=== PATIENT | female | born 1975 | race Caucasian/White ===

== ENCOUNTER → 2022-04-10 | Outpatient (CLI) | payer BC ==
[2022-04-10 16:26] LABS: Basophils # (A) 0.06 X 10*3/uL (0.00-0.10); Basophils % (A) 1.2 %; Eosinophils # (A) 0.14 X 10*3/uL (0.04-0.35); Eosinophils % (A) 2.9 %; HCT 38.3 % (37.2-46.3); HGB 11.6 g/dL (12.0-15.0); Immature Grans, Automated 0.2 %; Lymphocytes # (A) 2.05 X 10*3/uL (0.90-5.00); Lymphocytes % (A) 42.5 %; MCH 27.4 pg (27.0-32.0); MCHC 30.3 g/dL (32.0-37.0); MCV 90.3 fL (80.0-97.0); Mean Platelet Volume 11.3 fL (9.5-12.2); Monocytes # (A) 0.71 X 10*3/uL (0.20-1.00); Monocytes % (A) 14.7 %; NRBC Per 100 WBC 0 /100 WBCS (0.0-0.0); Neutrophils # (A) 1.85 X 10*3/uL (1.80-7.70); Neutrophils % (A) 38.5 %; Platelet Count 286 X 10*3/uL (140-440); RBC 4.24 X 10*6/uL (4.10-5.20); RDW 14.1 % (11.5-14.5); WBC 4.82 X 10*3/uL (4.50-10.00)
[2022-04-10 16:32] LABS: Anion Gap 6.2 mmol/L (10.00-18.00); Carbon Dioxide 25.8 mmol/L (20.0-27.5); Potassium 4.5 mmol/L (3.5-5.5)
[2022-04-10 16:33] LABS: African American GFR (CKD) 121.3 (60.0-200.0); Blood Urea Nitrogen 10.6 mg/dL (9.0-27.0); Non-African American GFR(CKD) 104.6 (60.0-200.0)
== END | disposition home or self-care (01) ==
LOC: LABPAT 11:11
PROVIDERS: ATTEND Obstetrics & Gynecology
DX: Z01.812 Encounter for preprocedural laboratory examination (principal); N92.1 Excessive and frequent menstruation with irregular cycle; D25.9 Leiomyoma of uterus, unspecified
CPT/HCPCS: 80051; 82565; 82947; 84520; 85025; 87086

== ENCOUNTER 2022-04-19 07:06 | Observation (INO) | payer BC ==
[2022-04-16 09:00] VITALS: BMI 28.3
[2022-04-19] MEDS ORDERED: ONDANSETRON 4 MG/2 ML VIAL ONE (07:24)
[2022-04-19] MEDS ORDERED: LIDOCAINE 1% (10MG/ML) FOR IV START INTRADERMA ONE (07:45)
[2022-04-19] MEDS ORDERED: LACTATED RINGERS 1,000 ML IV ONE ×2 (07:46→09:50)
[2022-04-19] MEDS ORDERED: DEXAMETHASONE SOD PHOSPHATE 4 MG/ML 1 ML VIAL IVP ONE (08:15)
[2022-04-19] MEDS ORDERED: MIDAZOLAM 2 MG/2 ML VIAL IVP ONE (08:28)
[2022-04-19] MEDS ORDERED: GLYCOPYRROLATE 0.2 MG/ML 2 ML VIAL ONE (09:09)
[2022-04-19] MEDS ORDERED: ROCURONIUM 10 MG/ML (5 ML VIAL) IV ONE (09:09)
[2022-04-19] MEDS ORDERED: KETOROLAC 15 MG/ML 1 ML VIAL ONE (09:09)
[2022-04-19] MEDS ORDERED: DEXAMETHASONE SOD PHOSPHATE 4 MG/ML 1 ML VIAL ONE (09:09)
[2022-04-19] MEDS ORDERED: HYDROmorphone (PF) 1 MG/ML ONE (09:09)
[2022-04-19] MEDS ORDERED: MIDAZOLAM 2 MG/2 ML VIAL ONE (09:09)
[2022-04-19] MEDS ORDERED: ROPIVACAINE 5 MG/ML 30 ML VIAL ONE (09:09)
[2022-04-19] MEDS ORDERED: NEOSTIGMINE 1 MG/ML 10 ML VIAL ONE (09:09)
[2022-04-19] MEDS ORDERED: LIDOCAINE 2% INJ 20 MG/ML (2 ML VIAL) ONE (09:09)
[2022-04-19] MEDS ORDERED: fentaNYL (PF) 50 MCG/ML 2 ML AMP ONE (09:09)
[2022-04-19] MEDS ORDERED: PROPOFOL 10 MG/ML 20 ML VIAL IV ONE (09:09)
[2022-04-19] MEDS ORDERED: BUPIVACAINE (PF) 0.5% 30 ML VIAL SQ ONE ×2 (09:40→11:18)
[2022-04-19] MEDS ORDERED: diphenhydrAMINE 50 MG/ML 1 ML VIAL IVP PRN (11:26)
[2022-04-19] MEDS ORDERED: SIMETHICONE 80 MG CHEWABLE PO PRN (11:26)
[2022-04-19] MEDS ORDERED: ONDANSETRON 4 MG/2 ML VIAL IVP PRN (11:26)
[2022-04-19] MEDS ORDERED: Acetaminophen-Codeine 300-30mg TAB PO PRN (11:26)
[2022-04-19] MEDS ORDERED: METOCLOPRAMIDE 5 MG/ML 2 ML VIAL IVP PRN (11:26)
[2022-04-19] MEDS ORDERED: LACTATED RINGERS 1,000 ML IV SCH (11:30)
--- NOTE | 2022-04-19 11:39 | P.OP ---
Date of Procedure: 04/19/22 Preoperative Diagnosis: #1. Menometrorrhagia #2. Large fibroid uterus Postoperative Diagnosis: Same Procedure(s) Performed: #1. Da Elbert robotically assisted laparoscopic hysterectomy, right salpingo- oophorectomy, left salpingectomy #2. Uterine morcellation #3. 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 Intraoperatively, the fibroid was noted to be involving the majority of the fundus of the uterus. The right ovary was directly infested to the uterine fundus on that side and could not be easily and the decision was made to take it with the specimen. Otherwise, the pelvic anatomy was entirely normal. The uterus was ultimately morcellated after having removed at laparoscopically in order to allow it to fit through the vagina. The bladder both cystoscopically and laparoscopically was intact and the bilateral ureteral hillocks were seen to be peristalsing. Description of Procedure: The patient was prepped and draped in usual fashion after general endotracheal anesthesia was administered by the anesthesiologist. A weighted speculum was placed in the anterior lip the cervix grasped with a single-tooth tenaculum. Serial dilation was carried out to admit the [facility] uterine manipulator with a large cup which was placed in standard fashion. The bladder was then catheterized with a Galarza catheter. Attention was turned to the abdomen where a site was selected approximately 5-6 cm above the umbilicus in the midline where an 8 mm incision was made in the transverse plane allowing insertion of an 8 mm da Elbert optical trocar under direct visualization without difficulty. A site was selected approximately 10-12 cm lateral and 3-4 cm inferiorly in the right lower quadrant approximately adjacent to the umbilicus where another 8 mm incision was made in the transverse plane allowing insertion of an 8 mm da Elbert port under direct visualization. A similar port was placed in the left lower quadrant. They're between the left lower quadrant port and the optical port was then bisected and a site selected approximately 4 cm above the optical port where a 1 cm incision was made allowing insertion of a 10 mm talent acquisition assistant port without difficulty again under direct visualization. Once the ports were placed, the robot was docked to the patient and the left arm loaded with the [place] bipolar cautery forceps while the right arm was loaded with a monopolar cautery scissors. I then presented to the console and began by removing the left tube from the underlying tissues both sharply with monopolar and bipolar cautery and the scissors. At the level of the uterus, utero-ovarian ligament was cauterized with the [place] then cut with the monopolar scissors. This incision was carried up and through the round ligament. Once through the round ligament, the bladder peritoneum was developed to the midline. The uterine vasculature was clearly seen and was cauterized with the [place] bipolar cautery forceps. Attention was then turned to the right side where was noted that the right tube and ovary were directly vested to the side of the uterus and it would be difficult or impossible to separate them from the uterus and maintain the integrity of the infundibulopelvic ligament. Decision was made to remove the ovary with the specimen. The utero-ovarian ligament was cauterized with the [place] bipolar cautery forceps and cut with the monopolar cautery scissors. This dissection was taken through the round ligament on the right side using similar techniques. The bladder peritoneum was then developed to the previously started incision from the other side in the midline. Blunt and sharp dissection was carried out to reflect the bladder distally. The uterine vasculature was then cauterized with the [place] bipolar cautery forceps on the right side and then cut with the monopolar scissors. We returned then to the left side and divided the vascular pedicle sharply with the scissors. Hemostasis was excellent throughout. The vaginal cuff was then opened sharply with the scissors using monopolar and bipolar cautery to identify the cervical cup. The incision was then carried around following the cervical cup circumferentially until the uterus was free. Attempts to deliver the uterus into the vagina were unsuccessful given the size of the fundus of the uterus and morcellation was undertaken with multiple pieces of the uterus removed from the center after bivalving the cervix. Ultimately, the uterus was delivered into the vagina and the vagina then packed with a laparotomy sponge allowing preservation of the pneumoperitoneum. I then returned to the console after having morcellated the uterus and treated the scissors for a laparoscopic suturing device. A stitch of 0 Stratafix was passed into the abdomen and the vaginal cuff closed from one angle to the other in standard fashion. The needle was then removed without difficulty. Hemostasis appeared to be excellent. Suction irrigation was carried out and again confirmed excellent hemostasis. I then returned to the patient and remove the Galarza catheter allowing placement of a diagnostic cystoscope. The bladder was filled with sterile water and the dome of the bladder was noted to be undamaged both from a laparoscopic and cystoscopic perspective. The bilateral ureteral hillocks were seen to deliver urine and be peristalsing. The cystoscope was then removed and the Galarza catheter replaced. The robot was undocked from the patient all instrumentation was removed. The 4 incisions were closed with interrupted subcuticular stitches of 4-0 Vicryl and then were infused with a total of 10 mL of half percent Marcaine without epinephrine equally divided between the 4 incisions. Incisions were then covered with Steri-Strips and Band-Aids. Estimated blood loss for the case was approximately 50 mL. There were no complications. All sponge, instrument, and needle counts were correct. The patient tolerated the procedure well and proceeded to the recovery room in stable condition.
[2022-04-19] MEDS ORDERED: MEPERIDINE 50 MG/ML SYRINGE IVP ONE (11:50)
--- NOTE | 2022-04-19 12:35 | P.ANPRN ---
Procedure Note - Anesthesia - Nerve Block Performed Bilateral Erector Spinae Single Time Out Performed: Yes Date of Procedure: 04/19/22 Procedure Start Time: : Procedure Stop Time: :35 Location of Patient: PreOp Indication: Acute Post-Operative Pain, Requested by Surgeon Sedation Type: Sedate with meaningful contact maintained Preparation: Sterile Prep Position: Prone Needle Types: Pajunk Needle Gauge: 21 Ultrasound used to visualize needle placement: Yes Ultrasound used to observe medication spread: Yes Blood Aspirated: No Pain Paresthesia on Injection Noted: No Resistance on Injection: Normal Image Stored and Saved: Yes Events: Uneventful and Well Tolerated (ropi .5% 20cc plus ns 10cc plus dexamethasone 4mg)
[2022-04-19] MEDS: Acetaminophen-Codeine 300-30mg TAB PO PRN ×2 (12:50→19:49)
[2022-04-19] MEDS: KETOROLAC 15 MG/ML 1 ML VIAL IVP PRN ×2 (15:40→21:59)
[2022-04-19] MEDS: SENNOSIDES-DOCUSATE SODIUM 1 EACH TAB PO SCH (19:49)
[2022-04-20] MEDS: IBUPROFEN 600 MG TAB PO PRN ×2 (04:02→10:45)
[2022-04-20 07:45] LABS: Basophils # (A) 0.1 k/uL (0-0.2); Basophils % (A) 1 %; Eosinophils # (A) 0.1 k/uL (0-0.7); Eosinophils % (A) 1 %; HCT 31.5 % (34.0-46.0); HGB 9.8 gm/dL (11.4-16.0); Lymphocytes # (A) 1.7 k/uL (1.0-4.8); Lymphocytes % (A) 21 %; MCH 27.9 pg (25.0-35.0); MCHC 30.9 g/dL (31.0-37.0); MCV 90.3 fL (80.0-100.0); Mean Platelet Volume 8.7; Monocytes # (A) 0.9 k/uL (0-1.0); Monocytes % (A) 11 %; Neutrophils # (A) 5.1 k/uL (1.3-7.7); Neutrophils % (A) 63 %; Platelet Count 227 k/uL (150-450); RBC 3.49 m/uL (3.80-5.40); RDW 13.8 % (11.5-15.5); WBC 8.1 k/uL (3.8-10.6)
[2022-04-20] MEDS: SENNOSIDES-DOCUSATE SODIUM 1 EACH TAB PO SCH (08:04)
--- NOTE | 2022-04-20 08:47 | P.DS ---
Providers Date of admission: 04/19/22 23:06 Expected date of discharge: 04/20/22 Attending physician: César Neal Primary care physician: Lucio Landeros - Discharge Diagnosis(es) (1) Fibroid uterus Current Visit: Yes Status: Acute (2) Menometrorrhagia Current Visit: Yes Status: Acute Hospital Course: The patient is a 46-year-old multiparous patient who presented the office complaining of increasing and heavier menometrorrhagia over the course of the last several years. Examination before out that she had a fairly large fibroid uterus approximately 14 weeks size with a large right fundal fibroid which was confirmed by ultrasound. After discussion of options for treatment, the best treatment was decided as hysterectomy and her examination before out either an open approach or a da Elbert approach. She agreed to undergo da Elbert robotically assisted laparoscopic hysterectomy and was taken for that procedure as well as bilateral salpingectomy. Intraoperatively, the decision was made to remove the right ovary as well as it was adherent to the right side of the uterus and would have been very technically difficult to save. The left ovary was entirely normal to appearance. She underwent those procedures and an uncomplicated fashion as well as diagnostic cystoscopy which demonstrated normal ureteral flow and no damage the bladder. Her postoperative course was unremarkable with vital signs remained stable and her temperature was afebrile throughout. She was deemed stable for discharge on postoperative day #1 was discharged home to follow-up in the office in 2 weeks and 8 weeks respectively. Discharge instructions included calling for any significantly increased fever, abdominal pain, vaginal bleeding, GI or urinary complaints, or anything else that concerned her. She was primarily instructed to have nothing in the vagina for at least 8 weeks time to include intercourse. She was last instructed to do no driving until off of all pain medications or 2 weeks' time, whichever came first. She understood her instructions and agrees to follow up as noted above. Discharge medications included any home medications as well as a prescription for Tylenol 3, 1-2 by mouth every 6 hours when necessary pain, #20 dispensed with no refills. Discharge hemoglobin and hematocrit were 9.8 and 31.5 respectively. Procedures: #1. Da Elbert robotically assisted laparoscopic hysterectomy with right salpingo-oophorectomy and left salpingectomy #2. Uterine morcellation for removal #3. Diagnostic cystoscopy Patient Condition at Discharge: Stable Plan - Discharge Summary Discharge Rx Participant: No New Discharge Prescriptions: No Action Multivitamins, Thera [Multivitamin (formulary)] 1 tab PO DAILY Zinc 50 mg PO DAILY Prozac (Unknown Dose) 1 tab PO DAILY [place]-3/Dha/Epa/Fish Oil [Fish Oil 1,000 mg Softgel] 1 each PO DAILY Iron 1 tab PO DAILY Collagen 1 tab PO DAILY Biotin 1 tab PO DAILY Wellbutrin (Unknown Dose) 1 tab PO DAILY Calcium 1 tab PO DAILY Apple Cider Vinegar 1 dose PO DAILY Discharge Medication List Apple Cider Vinegar 1 dose PO DAILY 04/16/22 [History] Biotin 1 tab PO DAILY 04/16/22 [History] Calcium 1 tab PO DAILY 04/16/22 [History] Collagen 1 tab PO DAILY 04/16/22 [History] Iron 1 tab PO DAILY 04/16/22 [History] Multivitamins, Thera [Multivitamin (formulary)] 1 tab PO DAILY 04/16/22 [History] [place]-3/Dha/Epa/Fish Oil [Fish Oil 1,000 mg Softgel] 1 each PO DAILY 04/16/22 [History] Prozac (Unknown Dose) 1 tab PO DAILY 04/16/22 [History] Wellbutrin (Unknown Dose) 1 tab PO DAILY 04/16/22 [History] Zinc 50 mg PO DAILY 04/16/22 [History] Follow up Appointment(s)/Referral(s): César Neal MD [STAFF PHYSICIAN] - 2 Weeks Discharge Disposition: HOME SELF-CARE
[2022-04-20 09:12] VITALS: BP 126/75; PULSE 88; RESP 18; TEMP 98.4
== END 2022-04-20 13:30 | disposition home or self-care (01) ==
LOC: OR 07:06 → 4FBP 11:21 → OR 23:06 → 4FBP 23:06
PROVIDERS: ADMIT Obstetrics & Gynecology; ATTEND Obstetrics & Gynecology
DX: N87.0 Mild cervical dysplasia (principal); N80.0 Endometriosis of uterus; D26.1 Other benign neoplasm of corpus uteri; N72 Inflammatory disease of cervix uteri; N88.8 Other specified noninflammatory disorders of cervix uteri; F32.A Depression, unspecified; D68.2 Hereditary deficiency of other clotting factors; Z98.890 Other specified postprocedural states; Z82.49 Family history of ischemic heart disease and other diseases of the circulatory system; Z87.891 Personal history of nicotine dependence; K21.9 Gastro-esophageal reflux disease without esophagitis; Z79.899 Other long term (current) drug therapy
CPT/HCPCS: 52000; 58573; S2900; 64999; 81025; 85025; 86850; 86900; 86901; 88307; 88341; 88342

== ENCOUNTER 2023-08-11 02:35 | Observation (INO) | payer BC ==
[2023-08-11] MEDS ORDERED: KETOROLAC 15 MG/ML 1 ML VIAL IVP STA (03:09)
[2023-08-11] MEDS ORDERED: SODIUM CHLORIDE 0.9% 1,000 ML IV STA (03:09)
[2023-08-11] MEDS ORDERED: MORPHINE SULFATE 4 MG/ML SYRINGE IVP STA (03:09)
--- NOTE | 2023-08-11 03:19 | ED ---
Abdominal Pain HPI - General Chief Complaint: Abdominal Pain Stated Complaint: Abdominal Pain Time Seen by Provider: 08/11/23 02:40 Source: patient, EMS, RN notes reviewed Mode of arrival: EMS Limitations: no limitations - History of Present Illness Initial Comments: This is a 47-year-old female who presents to the emergency department as a transfer from [facility] for a right ureteral calculus. Patient presented to their facility with right flank and right lower quadrant pain. She was found to have a 7 mm obstructing calculus in the right proximal ureter with mild hydronephrosis. They attempted to control her pain with Toradol and Dilaudid, however she was still very uncomfortable and she was subsequently transferred to our facility for further treatment and urological evaluation. Patient denies any nausea at this time. Also denies any urinary symptoms. Denies any fevers, chills, sore throat, cough, dyspnea, chest pain, palpitations, nausea, vomiting, diarrhea, or headaches. MD Complaint: abdominal pain, flank pain Location: R flank Radiation: RLQ - Related Data Home Medications Medication Instructions Recorded Confirmed Apple Cider Vinegar 1 dose PO DAILY 04/16/22 04/19/22 Biotin 1 tab PO DAILY 04/16/22 04/19/22 Calcium 1 tab PO DAILY 04/16/22 04/19/22 Collagen 1 tab PO DAILY 04/16/22 04/19/22 Iron 1 tab PO DAILY 04/16/22 04/19/22 Multivitamins, Thera [Multivitamin 1 tab PO DAILY 04/16/22 04/19/22 (formulary)] [place]-3/Dha/Epa/Fish Oil [Fish Oil 1 each PO DAILY 04/16/22 04/19/22 1,000 mg Softgel] Prozac (Unknown Dose) 1 tab PO DAILY 04/16/22 04/19/22 Wellbutrin (Unknown Dose) 1 tab PO DAILY 04/16/22 04/19/22 Zinc 50 mg PO DAILY 04/16/22 04/19/22 Allergies Allergy/AdvReac Type Severity Reaction Status Date / Time No Known Allergies Allergy Verified 04/19/22 07:25 Review of Systems ROS Statement: Those systems with pertinent positive or pertinent negative responses have been documented in the HPI. ROS Other: All systems not noted in ROS Statement are negative. Past Medical History Past Medical History: Blood Disorder Additional Past Medical History / Comment(s): factor 5 leiden., hx covid Nov 2021., fibroid uterus, heavy menstrual periods. History of Any Multi-Drug Resistant Organisms: None Reported Additional Past Surgical History / Comment(s): Multiple D&C's Past Anesthesia/Blood Transfusion Reactions: No Reported Reaction Past Psychological History: Anxiety, Depression Smoking Status: Former smoker Past Alcohol Use History: Rare Past Drug Use History: None Reported - Past Family History Mother Family Medical History: No Reported History General Exam Limitations: no limitations General appearance: alert, in no apparent distress Head exam: Present: atraumatic, normocephalic, normal inspection Respiratory exam: Present: normal lung sounds bilaterally. Absent: respiratory distress, wheezes, rales, rhonchi, stridor Cardiovascular Exam: Present: regular rate, normal rhythm, normal heart sounds. Absent: systolic murmur, diastolic murmur, rubs, gallop, clicks GI/Abdominal exam: Present: soft, tenderness (RLQ), normal bowel sounds. Absent: distended Back exam: Present: CVA tenderness (R). Absent: CVA tenderness (L) Neurological exam: Present: alert, oriented X3, CN II-XII intact Psychiatric exam: Present: normal affect, normal mood Skin exam: Present: warm, dry, intact, normal color. Absent: rash Course Vital Signs 08/11/23 08/11/23 02:37 03:12 Temperature 98.0 F Pulse Rate 71 70 Respiratory 16 18 Rate Blood Pressure 140/88 131/68 O2 Sat by Pulse 94 L 95 Oximetry Medical Decision Making - Medical Decision Making This is a 47-year-old female who presents to the emergency department for a right ureteral calculus. Was pt. sent in by a medical professional or institution? @ -[facility] Did you speak to anyone other than the patient for history? @ -No Did you review nursing and triage notes? @ -Yes, and I agree, it is accurate with regards to the patient's symptoms. Were old charts reviewed? @ -Outside records sent from [facility] regarding the patient's visit today. This revealed a 7 mm obstructing right ureteral calculus with mild hydronephrosis. Lab work was unremarkable. Urinalysis negative for signs of infection. Patient's pain was controlled with Toradol and Dilaudid, and she was transferred here for further management. Differential Diagnosis? @ -Differential Flank Pain: UTI, pyelonephritis, kidney stone, musculoskeletal, pancreatitis, cholecystitis, this is not meant to be an all-inclusive list. EKG interpreted by me (3pts min.)? @ -EKG interpreted by me demonstrating the following: Sinus rhythm. Ventricular rate 70 beats per minute, TN interval 175 ms, QRS duration 94 ms, QTC 418 ms. X-rays interpreted by me (1pt min.)? @ -Not obtained CT interpreted by me (1pt min.)? @ -Not obtained U/S interpreted by me (1pt. min.)? @ -Not obtained What testing was considered but not performed? (CT, X-rays, U/S, labs)? Why? @ -None What meds were considered but not given? Why? @ -None Did you discuss the management of the patient with other professionals? @ -No Did you reconcile home meds? @ -No Was smoking cessation discussed for >3mins.? @ -No Was critical care preformed (if so, how long)? @ -No Were there social determinants of health that impacted care today? How? (Homelessness, low income, unemployed, alcoholism, drug addiction, transportation, low edu. Level, literacy, decrease access to med. care, intermediate, rehab)? @ -No Was there de-escalation of care discussed even if they declined? (Discuss DNR or withdrawal of care, Hospice)? @ -No What co-morbidities impacted this encounter? (DM, HTN, Smoking, COPD, CAD, Cancer, CVA, Hep., AIDS, mental health diagnosis, sleep apnea, morbid obesity)? @ -None Was patient admitted / discharged? @ -Admitted. Patient transferred from [facility] for a 7 mm right ureteral obstructing calculus with mild hydronephrosis. Her pain was uncontrolled there after 2 doses of pain medication, and she subsequently transferred here for further management and urological evaluation. I reviewed her blood work, and this demonstrated no acute findings. Urinalysis also negative for signs of infection. Patient was started on IV fluids and given pain and nausea medication in the emergency department. She was also kept NPO in the event any intervention will take place later today. Repeat blood work was ordered here, with results pending at the time of admission. Patient admitted to medicine with urology consult. Undiagnosed new problem with uncertain prognosis? @ -None Drug Therapy requiring intensive monitoring for toxicity (Heparin, Nitro, Insulin, Cardizem)? @ -None Were any procedures done? @ -None Diagnosis/symptom? @ -Right ureteral calculus, hydronephrosis Acute, or Chronic, or Acute on Chronic? @ -Acute Uncomplicated (without systemic symptoms) or Complicated (systemic symptoms)? @ -Complicated Side effects of treatment? @ -None Exacerbation, Progression, or Severe Exacerbation] @ -Not applicable Poses a threat to life or bodily function? @ -Yes, the pain is impacting her ability to function. This case was discussed in detail with the attending ED physician, Dr. Carmen. Presentation, findings, and treatment plan discussed in detail as well. Disposition Clinical Impression: Right ureteral calculus, Hydronephrosis, right Disposition: ADMITTED IP TO THIS HOSP
[2023-08-11] MEDS ORDERED: ONDANSETRON 4 MG/2 ML VIAL IVP STA (03:32)
[2023-08-11] MEDS ORDERED: NALOXONE 0.4 MG/ML 1 ML VIAL IV PRN (03:34)
[2023-08-11] MEDS ORDERED: ONDANSETRON 4 MG/2 ML VIAL IVP PRN (03:34)
[2023-08-11] MEDS: SODIUM CHLORIDE 0.9% 1,000 ML IV SCH ×2 (04:06→13:22)
[2023-08-11 05:12] LABS: ALT 19 U/L (4-34); AST 22 U/L (14-36); African American GFR (CKD) >90 (>60 ml/min/1.73 sqM); Albumin 3.2 g/dL (3.5-5.0); Alkaline Phosphatase 70 U/L (38-126); Anion Gap 5 mmol/L; Blood Urea Nitrogen 15 mg/dL (7-17); Carbon Dioxide 23 mmol/L (22-30); Chloride 111 mmol/L (98-107); Glucose 111 mg/dL (74-99); Non-African American GFR(CKD) 89 (>60 ml/min/1.73 sqM); Potassium 4.5 mmol/L (3.5-5.1); Sodium 139 mmol/L (137-145); Total Bilirubin 0.4 mg/dL (0.2-1.3); Total Protein 5.9 g/dL (6.3-8.2)
[2023-08-11 05:13] LABS: Partial Thromboplastin Time 23.3 sec (22.0-30.0); Prothrombin Time 10.4 sec (9.0-12.0)
[2023-08-11 05:14] LABS: Basophils % (A) 0 %; Eosinophils # (A) 0.1 k/uL (0-0.7); Eosinophils % (A) 2 %; HCT 38.6 % (34.0-46.0); HGB 12.9 gm/dL (11.4-16.0); Lymphocytes # (A) 1.6 k/uL (1.0-4.8); Lymphocytes % (A) 21 %; MCH 30.1 pg (25.0-35.0); MCHC 33.5 g/dL (31.0-37.0); MCV 89.9 fL (80.0-100.0); Mean Platelet Volume 8.3; Monocytes # (A) 0.6 k/uL (0-1.0); Monocytes % (A) 8 %; Neutrophils # (A) 5.1 k/uL (1.3-7.7); Neutrophils % (A) 68 %; Platelet Count 206 k/uL (150-450); RDW 12.9 % (11.5-15.5); WBC 7.6 k/uL (3.8-10.6)
[2023-08-11] MEDS ORDERED: hydrOXYzine HCL 25 MG TAB PO PRN (07:01)
--- NOTE | 2023-08-11 07:45 | P.GSCN ---
History of Present Illness Consult date: 08/11/23 History of present illness: Pleasant 47-year-old female transferred from [place] because of right ureteral colic. The patient stated that yesterday she developed severe flank pain. She ended up in the emergency room and was identified on CAT scan to have a 7 mm proximal right ureteral stone. Because of pain on the right side he was transferred to [facility] admitted the hospital. I was asked to see the patient to. She was interviewed at the bedside. She is feeling discomfort at present. This is her first stone. She has had no fever. She has no major back or bowel problems. No Family history of stones. Her only surgery is a hysterectomy. Review of Systems All systems: negative - Constitutional Denies fever, Denies weight loss - EENT Eyes: denies blurred vision Ears, nose, mouth and throat: Denies dysphagia - Cardiovascular Denies chest pain, Denies shortness of breath - Respiratory Denies cough, Denies 7 - Gastrointestinal Reports as per HPI - Genitourinary Genitourinary: Denies dysuria, Denies hematuria - Integumentary Denies rash, Denies unusual bruising - Neurological Denies headaches, Denies syncope - Hematologic/Lymphatic Denies easy bleeding, Denies easy bruising Past Medical History Past Medical History: Blood Disorder Additional Past Medical History / Comment(s): factor 5 leiden., hx covid Nov 2021., fibroid uterus, heavy menstrual periods. History of Any Multi-Drug Resistant Organisms: None Reported Additional Past Surgical History / Comment(s): Multiple D&C's Past Anesthesia/Blood Transfusion Reactions: No Reported Reaction Past Psychological History: Anxiety, Depression Smoking Status: Former smoker Past Alcohol Use History: Rare Additional Past Alcohol Use History / Comment(s): quit smoking 15 years ago, hx of 1/2 ppd, started smoking age 18. Past Drug Use History: None Reported - Past Family History Mother Family Medical History: No Reported History Medications and Allergies Home Medications Medication Instructions Recorded Confirmed Type FLUoxetine HCL [PROzac] 20 mg PO DAILY 08/11/23 08/11/23 History buPROPion XL [Wellbutrin XL] 300 mg PO DAILY 08/11/23 08/11/23 History hydrOXYzine HCL [Atarax] 25 mg PO HS PRN 08/11/23 08/11/23 History Allergies Allergy/AdvReac Type Severity Reaction Status Date / Time No Known Allergies Allergy Verified 08/11/23 06:32 Surgical - Exam Vital Signs Temp Pulse Resp BP Pulse Ox 98.0 F 71 16 140/88 94 L 08/11/23 02:37 08/11/23 02:37 08/11/23 02:37 08/11/23 02:37 08/11/23 02:37 - General well developed, well nourished, no distress - Eyes normal ocular movement, no icteric - ENT no hearing loss, no congestion - Neck no masses, trachea midline - Respiratory normal respiratory effort, clear to auscultation - Abdomen Abdomen: soft, non tender, no guarding, no rigid, no rebound - Integumentary no rash, no abnormal pigmentation - Neurologic no disoriented, no combative - Psychiatric oriented to time, oriented to person, oriented to place, speech is normal, memory intact Results - Labs 08/11/23 04:31 08/11/23 04:31 Abnormal Lab Results - Last 24 Hours (Table) 08/11/23 08/11/23 Range/Units 04:31 04:31 Chloride 111 H (98-107) mmol/L Glucose 111 H (74-99) mg/dL Plasma Lactic Acid Carlitos 0.6 L (0.7-2.0) mmol/L Total Protein 5.9 L (6.3-8.2) g/dL Albumin 3.2 L (3.5-5.0) g/dL Diabetes panel 08/11/23 Range/Units 04:31 Sodium 139 (137-145) mmol/L Potassium 4.5 (3.5-5.1) mmol/L Chloride 111 H (98-107) mmol/L Carbon Dioxide 23 (22-30) mmol/L BUN 15 (7-17) mg/dL Creatinine 0.80 (0.52-1.04) mg/dL Glucose 111 H (74-99) mg/dL Calcium 9.0 (8.4-10.2) mg/dL AST 22 (14-36) U/L ALT 19 (4-34) U/L Alkaline Phosphatase 70 (38-126) U/L Total Protein 5.9 L (6.3-8.2) g/dL Albumin 3.2 L (3.5-5.0) g/dL Calcium panel 08/11/23 Range/Units 04:31 Calcium 9.0 (8.4-10.2) mg/dL Albumin 3.2 L (3.5-5.0) g/dL Pituitary panel 08/11/23 Range/Units 04:31 Sodium 139 (137-145) mmol/L Potassium 4.5 (3.5-5.1) mmol/L Chloride 111 H (98-107) mmol/L Carbon Dioxide 23 (22-30) mmol/L BUN 15 (7-17) mg/dL Creatinine 0.80 (0.52-1.04) mg/dL Glucose 111 H (74-99) mg/dL Calcium 9.0 (8.4-10.2) mg/dL Adrenal panel 08/11/23 Range/Units 04:31 Sodium 139 (137-145) mmol/L Potassium 4.5 (3.5-5.1) mmol/L Chloride 111 H (98-107) mmol/L Carbon Dioxide 23 (22-30) mmol/L BUN 15 (7-17) mg/dL Creatinine 0.80 (0.52-1.04) mg/dL Glucose 111 H (74-99) mg/dL Calcium 9.0 (8.4-10.2) mg/dL Total Bilirubin 0.4 (0.2-1.3) mg/dL AST 22 (14-36) U/L ALT 19 (4-34) U/L Alkaline Phosphatase 70 (38-126) U/L Total Protein 5.9 L (6.3-8.2) g/dL Albumin 3.2 L (3.5-5.0) g/dL - Imaging CT scan - abdomen: report reviewed CT scan - pelvis: report reviewed Assessment and Plan Assessment: Impression: Right ureteral calculus with colic Recommendations: I had a lengthy discussion with the patient about kidney stones, ureteral stone with obstruction. We discussed the treatment options for this including spontaneous passage shockwave lithotripsy ureteroscopic stone removal or percutaneous nephrostolithotomy. The patient will be liberate on whether she wants to try to pass this or have ureteroscopic intervention in the next 24 hours. I will follow with this patient.
[2023-08-11] MEDS: buPROPion XL 300 MG TAB.ER.24H PO SCH (08:37)
[2023-08-11] MEDS: FLUoxetine HCL 20 MG CAP PO SCH (08:37)
[2023-08-11] MEDS: HYDROmorphone 0.5 MG/0.5 ML SYRINGE IVP PRN ×2 (08:40→13:24)
[2023-08-11] MEDS ORDERED: KETOROLAC 15 MG/ML 1 ML VIAL IVP PRN (12:50)
--- NOTE | 2023-08-11 13:18 | P.HPIM ---
History of Present Illness H&P Date: 08/11/23 This is a pleasant 47 year old female with medical history of factor V Leyden deficiency fibroid uterus with multiple D&Cs and a hysterectomy. Also with anxiety depression in former smoker. Patient was in the hospital significant right lower quadrant abdominal pain with radiation around to the back into the right flank. Denies fever no chills no nausea vomiting or diarrhea. No dysuria urgency or frequency or burning with urination. She initially presented to [facility] there she was found to have a 7 mm obstructing calculus in the proximal right ureter with mild hydronephrosis. Patient is on pain management with Toradol and Dilaudid she was transferred down to the hospital for further evaluation and to see urology. White count is normal at 7.6, renal function is normal BUN 15 creatinine 0.80. She has remained afebrile heart rate is 70s pressure 120/65% room air. Patient is scheduled to undergo cystoscopy with right ureteroscopy laser lithotripsy and possible stent placement tomorrow with Dr. Honeycutt. Patient is receiving IV fluids normal saline. REVIEW OF SYSTEMS: CONSTITUTIONAL: No fever, no malaise, no fatigue. HEENT: No recent visual problems or hearing problems. Denied any sore throat. CARDIOVASCULAR: No chest pain, orthopnea, PND, no palpitations, no syncope. PULMONARY: No shortness of breath, no cough, no hemoptysis. GASTROINTESTINAL: No diarrhea, no nausea, no vomiting RLQ abdominal pain and right flank pain. NEUROLOGICAL: No headaches, no weakness, no numbness. HEMATOLOGICAL: Denies any bleeding or petechiae. GENITOURINARY: Denies any burning micturition, frequency, or urgency. MUSCULOSKELETAL/RHEUMATOLOGICAL: Denies any joint pain, swelling, or any muscle pain. ENDOCRINE: Denies any polyuria or polydipsia. The rest of the 14-point review of systems is negative. PHYSICAL EXAMINATION: GENERAL: The patient is alert and oriented x3, not in any acute distress. Well developed, well nourished. HEENT: Pupils are round and equally reacting to light. EOMI. No scleral icterus. No conjunctival pallor. Normocephalic, atraumatic. No pharyngeal erythema. No thyromegaly. CARDIOVASCULAR: S1 and S2 present. No murmurs, rubs, or gallops. PULMONARY: Chest is clear to auscultation, no wheezing or crackles. ABDOMEN: Soft, nontender, nondistended, normoactive bowel sounds. No palpable organomegaly. MUSCULOSKELETAL: No joint swelling or deformity. EXTREMITIES: No cyanosis, clubbing, or pedal edema. NEUROLOGICAL: Gross neurological examination did not reveal any focal deficits. SKIN: No rashes. Assessment Right lower quad abdominal pain and right flank pain secondary to obstructive calculus 7mm patient is scheduled to undergo lithotripsy and possible stent placement tomorrow with urology Mild right hydronephrosis secondary to above Factor 5 leiden deficiency Hx of fibroid uterus and D&C Anxiety/Depression Former Smoker GI prophylaxis DVT prophylaxis Full Code Plan Continue IV fluids and pain management. As above patient is scheduled for urological procedure tomorrow. The impression and plan of care has been dictated by Julia Ochoa, Nurse Practitioner as directed. Dr. Sonya MD I have performed a history and physical examination and medical decision making of this patient, discussed the same with the dictator, and agree with the dictators assessment and plan as written, documented as a scribe. Based on total visit time, I have performed more than 50% of this visit. Past Medical History Past Medical History: Blood Disorder Additional Past Medical History / Comment(s): factor 5 leiden., hx covid Nov 2021., fibroid uterus, heavy menstrual periods. History of Any Multi-Drug Resistant Organisms: None Reported Additional Past Surgical History / Comment(s): Multiple D&C's Past Anesthesia/Blood Transfusion Reactions: No Reported Reaction Past Psychological History: Anxiety, Depression Smoking Status: Former smoker Past Alcohol Use History: Rare Additional Past Alcohol Use History / Comment(s): quit smoking 15 years ago, hx of 1/2 ppd, started smoking age 18. Past Drug Use History: None Reported - Past Family History Mother Family Medical History: No Reported History Medications and Allergies Home Medications Medication Instructions Recorded Confirmed Type FLUoxetine HCL [PROzac] 20 mg PO DAILY 08/11/23 08/11/23 History buPROPion XL [Wellbutrin XL] 300 mg PO DAILY 08/11/23 08/11/23 History hydrOXYzine HCL [Atarax] 25 mg PO HS PRN 08/11/23 08/11/23 History Allergies Allergy/AdvReac Type Severity Reaction Status Date / Time No Known Allergies Allergy Verified 08/11/23 06:32 Physical Exam Vitals: Vital Signs Temp Pulse Pulse Resp BP BP Pulse Ox 08/11/23 07:00 97.5 F L 71 14 121/65 97 08/11/23 05:37 97.5 F L 120/66 98 08/11/23 03:12 70 18 131/68 95 08/11/23 02:37 98.0 F 71 16 140/88 94 L Intake and Output 08/10/23 08/11/23 08/11/23 22:59 06:59 14:59 Other: Voiding Method Toilet Toilet # Voids 1 Weight 72.575 kg Results CBC & Chem 7: 08/11/23 04:31 08/11/23 04:31 Labs: Abnormal Lab Results - Last 24 Hours (Table) 08/11/23 08/11/23 Range/Units 04:31 04:31 Chloride 111 H (98-107) mmol/L Glucose 111 H (74-99) mg/dL Plasma Lactic Acid Carlitos 0.6 L (0.7-2.0) mmol/L Total Protein 5.9 L (6.3-8.2) g/dL Albumin 3.2 L (3.5-5.0) g/dL Thrombosis Risk Factor Assmnt - Choose All That Apply Each Factor Represents 1 point: Age 41-60 years, Obesity (BMI >25) Thrombosis Risk Factor Assessment Total Risk Factor Score: 2 Thrombosis Risk Factor Assessment Level: Low Risk Assessment and Plan Time with Patient: Less than 30
--- NOTE | 2023-08-11 17:44 | P.PN ---
Progress Note - Text Progress Note Date: 08/11/23 The patient is in the hospital with an obstructing proximal right ureteral calculus with colic. She came from [place]. This morning she was uncertain as to whether she wished to have anything done surgically that she continued to have pain all day long would like to have the stone removed. She'll be set up for right ureteroscopy and laser lithotripsy tomorrow. She's been made nothing by mouth.
[2023-08-11] MEDS: ACETAMINOPHEN TAB 325 MG TAB PO PRN (18:35)
[2023-08-11] MEDS: HYDROmorphone 1 MG/ML 1 ML SYRINGE IVP PRN (21:07)
[2023-08-12] MEDS: SODIUM CHLORIDE 0.9% 1,000 ML IV SCH (00:29)
[2023-08-12] MEDS: HYDROmorphone 1 MG/ML 1 ML SYRINGE IVP PRN (03:22)
[2023-08-12] MEDS ORDERED: PANTOPRAZOLE 40 MG/10 ML VIAL IVP SCH (09:00)
[2023-08-12] MEDS: FLUoxetine HCL 20 MG CAP PO SCH (09:03)
[2023-08-12] MEDS: buPROPion XL 300 MG TAB.ER.24H PO SCH (09:03)
[2023-08-12] MEDS: HYDROmorphone 0.5 MG/0.5 ML SYRINGE IVP PRN (09:03)
[2023-08-12] MEDS ORDERED: LACTATED RINGERS 1,000 ML IV ONE (11:44)
[2023-08-12] MEDS ORDERED: ONDANSETRON 4 MG/2 ML VIAL IVP ONE (11:47)
[2023-08-12] MEDS ORDERED: DEXAMETHASONE SOD PHOSPHATE 4 MG/ML 1 ML VIAL IVP ONE (11:48)
[2023-08-12] MEDS ORDERED: SODIUM CHLORIDE 0.9% 100 ML BAG ONE (12:26)
[2023-08-12] MEDS ORDERED: MIDAZOLAM 2 MG/2 ML VIAL ONE (12:26)
[2023-08-12] MEDS ORDERED: SUCCINYLCHOLINE CHLORIDE 200 MG/10 ML VIAL IV ONE (12:26)
[2023-08-12] MEDS ORDERED: GLYCOPYRROLATE 0.2 MG/ML 2 ML VIAL ONE (12:26)
[2023-08-12] MEDS ORDERED: LIDOCAINE 1% INJ 10MG/ML (20 ML MDV) ONE (12:26)
[2023-08-12] MEDS ORDERED: fentaNYL (PF) 50 MCG/ML 2 ML AMP ONE (12:26)
[2023-08-12] MEDS ORDERED: KETOROLAC 15 MG/ML 1 ML VIAL ONE (12:26)
[2023-08-12] MEDS ORDERED: ceFAZolin 1,000 MG VIAL ONE (12:26)
[2023-08-12] MEDS ORDERED: PROPOFOL 10 MG/ML 20 ML VIAL IV ONE (12:26)
[2023-08-12] MEDS ORDERED: SODIUM CHLORIDE 0.9% 50 ML with ceFAZolin 1,000 MG IV ONE ×2 (13:11)
--- NOTE | 2023-08-12 13:17 | P.OP ---
Date of Procedure: 08/12/23 Preoperative Diagnosis: Right ureteral calculus Postoperative Diagnosis: Same Procedure(s) Performed: Cystoscopy, right ureteroscopy with laser lithotripsy, placement of 624 stent Anesthesia: PAOLA Surgeon: Boris Niño Estimated Blood Loss (ml): 0 Pathology: other (Stone) Condition: stable Disposition: PACU Indications for Procedure: The patient is 47. She presented from [facility] because of severe ureteral colic. She has a 7 mm proximal right ureteral stone with colic. She is continuing to have pain and cannot pass that she comes for ureteroscopy and laser lithotripsy right Description of Procedure: Patient brought. In suite. Under general anesthetic. Placed lithotomy position with sterile prep and drape. Cystoscopy with a Foroblique lens and 21- Serbian sheath identifies a normal urethra. Normal ureteral or sees. Normal bladder wall. An 035 wires passed up the right ureter by the impacted stone into the kidney. Over the wires passed [id number] reentry sheath. The inner sheath is removed. I passed the flexible ureteroscope up to the stone which has created a significant amount of edema. With the 272 probe the right ureteral stone is fragmented.and Fall back into the kidney. I fragment the remaining stone into dust a. A small fragment is collected and sent to pathology. Due to the amount of edema double-J catheter be placed. Pullout ureteroscopy does not identify any ureteral stones. An 035 wires passed up the right ureter and over the wires passed a 6 x 24 double-J catheter that coils in the renal pelvis and the bladder the bladder is drained patient is awakened and returned recovery kevyn m good condition. She'll be discharged home and follow-up in the office in 10 days for catheter removal.
[2023-08-12 13:29] VITALS: RESP 14; TEMP 97.8
--- NOTE | 2023-08-12 13:30 | FL ---
Fluoroscopy History: RIGHT URETERAL CALCULUS right ureteral calculus. FL time 21.[address] Niño.
[2023-08-12 13:41] VITALS: PULSE 89
[2023-08-12 14:06] VITALS: BP 148/72
--- NOTE | 2023-08-12 15:04 | P.DS ---
Providers Date of admission: 08/11/23 03:36 Expected date of discharge: 08/12/23 Attending physician: Don Rodriguez Consults: 08/11/23 03:34 Consult Physician Urgent Consulting Provider: Boris Niño Consult Reason/Comments: Right ureteral calculus Do you want consulting provider notified?: Yes, Notify in am Primary care physician: [facility] Course: 47 year old female with medical history of factor V Leyden deficiency fibroid uterus with multiple D&Cs and a hysterectomy. Also with anxiety depression in former smoker. Patient was in the hospital significant right lower quadrant abdominal pain with radiation around to the back into the right flank. Denies fever no chills no nausea vomiting or diarrhea. No dysuria urgency or frequency or burning with urination. She initially presented to [facility] there she was found to have a 7 mm obstructing calculus in the proximal right ureter with mild hydronephrosis. Patient is on pain management with Toradol and Dilaudid she was transferred down to the hospital for further evaluation and to see urology. White count is normal at 7.6, renal function is normal BUN 15 creatinine 0.80. She has remained afebrile heart rate is 70s pressure 120/65% room air. Patient is scheduled to undergo cystoscopy with right ureteroscopy laser lithotripsy and possible stent placement tomorrow with Dr. Honeycutt. Patient is receiving IV fluids normal saline. 08/12/23: Patient seen and evaluated bedside, patient is status post cystoscopy and stent placement. Postprocedure patient was followed by urology and cleared for discharge. Patient denies of right CVA tenderness. Denies fever, white cell count normal. Patient was resuscitated with fluids. Discharge home. Patient will take Tylenol. Offered pain medications including [place] however patient does not want any pain medicines . Requested to take extra strength Tylenol and alternate with Motrin PHYSICAL EXAMINATION: GENERAL: The patient is alert and oriented x3, not in any acute distress. Well developed, well nourished. HEENT: Pupils are round and equally reacting to light. EOMI. No scleral icterus. No conjunctival pallor. Normocephalic, atraumatic. No pharyngeal erythema. No thyromegaly. CARDIOVASCULAR: S1 and S2 present. No murmurs, rubs, or gallops. PULMONARY: Chest is clear to auscultation, no wheezing or crackles. ABDOMEN: Soft, nontender, nondistended, normoactive bowel sounds. No palpable organomegaly. MUSCULOSKELETAL: No joint swelling or deformity. EXTREMITIES: No cyanosis, clubbing, or pedal edema. NEUROLOGICAL: Gross neurological examination did not reveal any focal deficits. SKIN: No rashes. Assessment: obstructive calculus 7mm Mild right hydronephrosis secondary to above Factor 5 leiden deficiency Hx of fibroid uterus and D&C Anxiety/Depression Former Smoker was seen by urology, status post stent placement, postprocedure patient wa s monitored, denies pain nausea vomiting. Patient to be monitored and discharged home. Use Tylenol Extra Strength for pain control. Outpatient follow-up with urology Plan - Discharge Summary New Discharge Prescriptions: New Acetaminophen Tab [Tylenol] 650 mg PO Q6HR PRN 7 Days #28 tab PRN Reason: Mild Pain Or Fever > 100.5 Continue FLUoxetine HCL [PROzac] 20 mg PO DAILY hydrOXYzine HCL [Atarax] 25 mg PO HS PRN PRN Reason: Insomnia buPROPion XL [Wellbutrin XL] 300 mg PO DAILY Discharge Medication List FLUoxetine HCL [PROzac] 20 mg PO DAILY 08/11/23 [History] buPROPion XL [Wellbutrin XL] 300 mg PO DAILY 08/11/23 [History] hydrOXYzine HCL [Atarax] 25 mg PO HS PRN 08/11/23 [History] Acetaminophen Tab [Tylenol] 650 mg PO Q6HR PRN 7 Days #28 tab 08/12/23 [Rx] Follow up Appointment(s)/Referral(s): Lucio Landeros MD [Primary Care Provider] - 1-2 days Boris Niño MD [STAFF PHYSICIAN] - 10 Days (cysto with stent removal ) Discharge Disposition: HOME SELF-CARE
[2023-08-12] MEDS: ACETAMINOPHEN TAB 325 MG TAB PO PRN (16:16)
== END 2023-08-12 16:21 | disposition home or self-care (01) ==
LOC: EC 02:35 → 6NMEDSUR 03:36
PROVIDERS: ADMIT Hospitalist; ATTEND Hospitalist
DX: N13.2 Hydronephrosis with renal and ureteral calculous obstruction (principal); D68.51 Activated protein C resistance; F32.A Depression, unspecified; F41.9 Anxiety disorder, unspecified; Z86.16 Personal history of COVID-19; Z87.891 Personal history of nicotine dependence; Z79.899 Other long term (current) drug therapy
CPT/HCPCS: 96376 ×2; 96361 ×2; 96375 ×3; 96374; 99285; 93005; 80053; 83605; 85025; 85610; 85730; 81025; 82365; 52356; G0378 ×2; J1100; J2405 ×2; J0690; J1170 ×4; J1885; C9113